=== PATIENT | male | born 2000 | race African-American/Black ===

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

== ENCOUNTER 2018-04-02 19:52 | Inpatient (IN) | payer OTHER, MEDICAID ==
[2018-04-02] MEDS ORDERED: NS 0.9% 1000 ML** 2,000 ML IV ONE (20:13)
[2018-04-02] MEDS ORDERED: Morphine VIAL* 4 MG/ML VIAL (1 ml vial) IV ONE ×2 (20:14→23:13)
[2018-04-02] MEDS ORDERED: Ondansetron INJ* 2 MG/ML VIAL IV ONE (20:14)
--- NOTE | 2018-04-02 20:14 | ED ---
Abdominal Pain/Male - HPI Summary HPI Summary: A 18 y/o M presents to ED with c/o diffuse suprapubic abd pain onset this AM. Pt states he had the pain upon waking today. Associated sx: n/v. He denies appy , but did have surgery for testicular torsion. He denies testicular swelling. - History of Current Complaint Chief Complaint: EDAbdPain Stated Complaint: ABD PAIN/NAUSEA Time Seen by Provider: 04/02/18 20:11 Hx Obtained From: Patient Onset/Duration: Lasting Hours, Still Present Timing: Constant Severity Initially: Moderate Severity Currently: Severe Pain Intensity: 9 Pain Scale Used: 0-10 Numeric Location: Diffuse Character: Sharp Associated Signs And Symptoms: Positive: Nausea, Vomiting. Negative: Other - neg: testicular swelling - Allergies/Home Medications Allergies/Adverse Reactions: Allergies Allergy/AdvReac Type Severity Reaction Status Date / Time No Known Allergies Allergy Verified 04/02/18 19:59 PMH/Surg Hx/FS Hx/Imm Hx Previously Healthy: Yes Endocrine/Hematology History: Denies: Hx Diabetes Cardiovascular History: Denies: Hx Hypertension Sensory History: Denies: Hx Deafness Opthamlomology History: Denies: Hx Legally Blind Infectious Disease History: No Infectious Disease History: Denies: Traveled Outside the [place] in Last 30 Days - Family History Known Family History: Positive: Hypertension - Social History Occupation: Student Lives: Dormitory/Roommates Alcohol Use: None Alcohol Amount: denies Hx Substance Use: No Substance Use Type: Reports: None Substance Use Comment - Amount & Last Used: Adderall occassionally Hx Tobacco Use: No Smoking Status (MU): Never Smoked Tobacco Review of Systems Positive: Abdominal Pain, Vomiting, Nausea Negative: other - neg: testicular swelling All Other Systems Reviewed And Are Negative: Yes Physical Exam - Summary Physical Exam Summary: Appearance: Well-appearing, Well-nourished, lying in bed comfortably Skin: Warm, dry, no obvious rash Eyes: sclera anicteric, no conjunctival pallor ENT: mucous membranes moist, pharynx appears normal Neck: Supple, nontender Respiratory: Clear to auscultation, no signs of respiratory distress Cardiovascular: Normal S1, S2. No murmurs. Normal distal pulses in tibial and radial bilaterally. Abdomen: Soft, normal active bowel sounds present. RLQ tenderness with some guarding. No rebound. Musculoskeletal: Normal, Strength/ROM Intact Neurological: A&Ox3, awake and alert, mentation is normal, speech is fluent and appropriate Psychiatric: affect is normal, does not appear anxious or depressed Testicular: No edema, enlargement or tenderness. Triage Information Reviewed: Yes Vital Signs On Initial Exam: Initial Vitals Temp Pulse Resp BP Pulse Ox 99.3 F 122 20 173/110 97 04/02/18 19:58 04/02/18 19:58 04/02/18 19:58 04/02/18 19:58 04/02/18 19:58 Vital Signs Reviewed: Yes Diagnostics - Vital Signs Vital Signs Temp Pulse Resp BP Pulse Ox 04/02/18 19:58 99.3 F 122 20 173/110 97 - Laboratory Result Diagrams: 04/02/18 20:37 04/02/18 20:37 Lab Statement: Any lab studies that have been ordered have been reviewed, and results considered in the medical decision making process. - CT A/P CT CT Interpretation Completed By: Radiologist Summary of CT Findings: IMPRESSION: 1. Mildly dilated thickwalled appendix concerning for early appendicitis. No. perforation or abscess. 2. Trace free fluid in pelvis. ED provider has reviewed this report. Re-Evaluation - Re-Evaluation 1 Re-Evaluation Time: 21:14 Change: Improved Comment: Pt feeling improved with medication. ABD exam shows RLQ tenderness with some guarding, no rebound. Testicular exam shows no edema, tenderness or enlargement. 2 Re-Evaluation Time: 01:22 Change: Improved Comment: Discussing CT results and surgery consult with pt, and plans to admit and go to OR. Abdominal Pain Fem Course/Dx - Course Course Of Treatment: Pt is a 18 y/o M presenting with diffuse suprapubic abd pain onset this AM. Pt states he had the pain upon waking today. Associated sx: n/v. He denies appy, but did have surgery for testicular torsion. He denies testicular swelling. Labs are without significant abnormalities. A/P CT reveals "1. Mildly dilated thickwalled appendix concerning for early appendicitis. No perforation or abscess. 2. Trace free fluid in pelvis.". Consulted with Dr. Harmon, surgery, who will admit patient and prep for OR. - Diagnoses Provider Diagnoses: Acute appendicitis - Provider Notifications Discussed Care Of Patient With: Dc Harmon - surgery Time Discussed With Above Provider: 01:21 Instructed by Provider To: Admit As Inpatient Discharge - Sign-Out/Discharge Documenting (check all that apply): Patient Departure - ADMIT, OR Patient Received Moderate/Deep Sedation with Procedure: No - Discharge Plan Condition: Stable Disposition: ADMITTED TO [facility] - Billing Disposition and Condition Condition: STABLE Disposition: Admitted to [facility] - Attestation Statements Document Initiated by Adiae: Yes Documenting Scribe: Lilian Reyes Provider For Whom Lavell is Documenting (Include Credential): Dr. Mark Montoya MD Scribe Attestation: Lilian Smith, scribed for Dr. Mark Montoya MD on 04/03/18 at 0526. Scribe Documentation Reviewed: Yes Provider Attestation: The documentation as recorded by the Lilian mackey accurately reflects the service I personally performed and the decisions made by me, Dr. Mark Montoya MD Status of Scribe Document: Viewed
[2018-04-02] MEDS ORDERED: Morphine VIAL* 10 MG/ML 1 ML VIAL ONE (20:19)
[2018-04-02 20:43] LABS: ABS Basophils 0 10^3/ul (0-0.2); ABS Eosinophils 0 10^3/ul (0-0.6); ABS Lymphocytes 0.3 10^3/ul (1.0-4.8); ABS Monocytes 0.5 10^3/ul (0-0.8); ABS Neutrophils 13.3 10^3/ul (1.5-7.7); ABS Nucleated RBC 0 10^3/ul; Eosinophil % 0.1 %; Hematocrit 46 % (42-52); Hemoglobin 15.8 g/dl (14.0-18.0); Lymphocyte % 1.9 %; Mean Corpuscular HGB Conc 34 g/dl (31-36); Mean Corpuscular Hemoglobin 29 pg (27-31); Mean Corpuscular Volume 84 fL (80-94); Mean Platelet Volume 8.9 fL (7.4-10.4); Nucleated Red Blood Cells % 0.2; Platelet Count 230 10^3/ul (150-450); Red Blood Count 5.52 10^6/ul (4.00-5.40); Red Cell Distribution Width 13 % (10.5-15)
[2018-04-02 21:02] LABS: Albumin 4.9 g/dL (3.2-5.2); Albumin/Globulin Ratio 1.9 (1-3); BUN/Creatinine Ratio 16.8 (8-20); Calcium 9.5 mg/dL (8.6-10.3); EGFR African American 100.1 (>60); EGFR Non-African American 82.7 (>60); Globulin 2.6 g/dL (2-4); Potassium 4.3 mmol/L (3.5-5.0); Total Protein 7.5 g/dL (6.4-8.9)
[2018-04-02] MEDS ORDERED: Iohexol 300* (CONTRAST) 10 ML SDV IV ONE (21:24)
[2018-04-03] MEDS ORDERED: Piperacillin/Tazobac ADVAN(*) 3.375 GM in NS 0.9% 100 ML* 100 ML IVPB ONE (01:19)
[2018-04-03] MEDS ORDERED: NS 0.9% 1000 ML** 2,000 ML IV ONE (01:20)
[2018-04-03] MEDS ORDERED: NS 0.9% 100 ML* 100 ML ONE (01:27)
[2018-04-03] MEDS ORDERED: Morphine INJ* 2 MG/ML 1 ML SYRINGE (TWO MG - NEW SYRINGE VERSION) IV PRN (01:43)
[2018-04-03] MEDS ORDERED: Metoclopramide IV* 5 MG/ML 2 ML VIAL IV PRN (01:44)
[2018-04-03] MEDS ORDERED: NS 0.9% 1000 ML** 1,000 ML IV SCH (01:45)
[2018-04-03] MEDS ORDERED: Acetaminophen TAB* 325 MG PO ONE (02:14)
[2018-04-03 03:29] LABS: Urine Appearance Clear; Urine Bilirubin Negative (Negative); Urine Blood Negative (Negative); Urine Color Yellow; Urine Glucose Negative (Negative); Urine Ketones 1+ (Negative); Urine Nitrite Negative (Negative); Urine Protein Negative (Negative); Urine Specific Gravity 1.036 (1.010-1.030); Urine Urobilinogen Negative (Negative)
[2018-04-03] MEDS ORDERED: ZOSYN 3.375 GM x ONE DOSE over 30 miuntes IVPB ×2 (07:30)
--- NOTE | 2018-04-03 09:06 | HP ---
H&P (Free Text) History and Physical: I saw and evaluated the patient. H and P dictated. 18 y.o male with HTN and acute appendicitis. Plan: laparoscopic appendectomy; r/b/a idscussed and pt wishes to proceed.
[2018-04-03] MEDS ORDERED: Buffered Lidocaine 1% SYRIN* 1 ML/SYRINGE INTRADERM ONE (09:51)
[2018-04-03] MEDS ORDERED: Ondansetron INJ* 2 MG/ML VIAL IV PRN (09:53)
[2018-04-03] MEDS ORDERED: diPHENhydraMINE IV* 50 MG/ML 1 ml VIAL (BENADRYL) IV PRN (09:53)
[2018-04-03] MEDS ORDERED: HYDROcodone/ACETAMIN 5-325 MG* 1 TAB PO PRN (09:53)
[2018-04-03] MEDS ORDERED: DiMENhydriNATE IV* 50 MG/ML VIAL IV PUSH PRN (09:53)
[2018-04-03] MEDS ORDERED: Acetaminophen TAB* 325 MG PO PRN (09:53)
[2018-04-03] MEDS ORDERED: fentaNYL* 50 MCG/ML 2 ML VIAL (100 MCG VIAL) IV PRN (09:53)
[2018-04-03] MEDS ORDERED: Naloxone* 0.4 MG/ML 1 ML VIAL IV PRN (09:53)
[2018-04-03] MEDS ORDERED: Lactated Ringers 1000 ML Bag* 1,000 ML IV SCH (10:00)
--- NOTE | 2018-04-03 10:00 | HP ---
CC: Anastacio Will[facility] at [facility]. HISTORY AND PHYSICAL: DATE OF ADMISSION: 04/03/18 HISTORY OF PRESENT ILLNESS: Mr. 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 Patient's workup in the ER including labs and CAT scan were consistent with acute appendicitis and I was contacted. Patient was admitted to my service in the overnight, I see him right now. Patient describes acute onset of pain about 5 a.m. yesterday, woke up, and had intermittent nausea an d vomiting afterwards as well as loose bowel movements, decreased appetite. Denied any fevers or chi lls, but he has had fever in the overnight. Patient denies any previous similar symptoms. He was co ncerned that the pain at first was similar to testicular torsion that he suffered years ago. Patient underwent a successful detorsion with suturing without orchiectomy. Patient currently has no pain in the scrotum. Pain is relieved with rest, worse with movement, it is improved with narcotics. PAST MEDICAL HISTORY: Hypertension. PAST SURGICAL HISTORY: As above. MEDICATIONS: 1. Amlodipine. 2. Losartan. Patient follows [facility] with regards to his hypertension, has undergone multiple labs through there. ALLERGIES: No known drug allergies. FAMILY HISTORY: Noncontributory. No family history of ulcerative colitis or Crohn's disease. SOCIAL HISTORY: Nonsmoker, nondrinker. 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 He is not an athlete. He is studying [employer]. REVIEW OF SYSTEMS: No headaches, no shortness of breath. No fevers except now objectively here in [facility]. No GERD, no irritable bowel symptoms. Loose bowel movements and vomiting as described. No bleeding or clotting disorders. Hypertension as described. No metabolic disorders. No psychiat kris illnesses. No significant weight loss or weight gain. PHYSICAL EXAMINATION VITAL SIGNS: Temperature 101.8, heart rate 109, blood pressure 150/67. He is alert and oriented x3, in no apparent distress. HEAD, EYES, EARS, NOSE, AND THROAT: Normocephalic, atraumatic. Sclerae are anicteric. Mucous membr anes are dry. NECK: No lymphadenopathy. LUNGS: Clear. ABDOMEN: Soft, nondistended. Tender in the right lower quadrant without rebound. Positive voluntary guarding. No CVA tenderness. RECTAL EXAM: Not performed. EXTREMITIES: Within normal limits with no pitting edema. Negative Rovsing or psoas sign. DIAGNOSTIC STUDIES/LAB DATA: Labs reviewed show white count elevated 14 with a left shift. No anem ia. Metabolic panel reviewed creatinine 1.13, which is upper limit of normal with an estimated GFR of 100. Lactic acid normal. Urinalysis with positive ketones. Patient underwent a CAT scan of the abdomen and pelvis. These images as well as report were reviewed . Positive fat, mildly dilated appendix with thick wall. IMPRESSION: Acute appendicitis, sepsis criteria with fever and elevated heart rate with white count elevated with left shift. Recommendations for antibiotics and has been started. Patient has already received a second dose of Zosyn. I have recommended laparoscopic appendectomy. I went over the deta ils of the procedure outlying the laparoscopic approach. Patient wishes to proceed. I spoke with po ssible complications, which include not limited bleeding, infection, bowel injury, abscess formation, need for open procedure, need for additional procedures. We also talked about the possible alternati ves of watchful waiting, and antibiotics alone. This was not recommended. Patient did not choose to go in this fashion. He maintained n.p.o. status, he is on IV fluids and we will take him emergently to the operating room for laparoscopic appendectomy. [id number]/[facility] #: [id number]
[2018-04-03] MEDS ORDERED: fentaNYL* 50 MCG/ML 2 ML VIAL (100 MCG VIAL) ONE (10:18)
[2018-04-03] MEDS ORDERED: Midazolam* 1 MG/ML 2 ML VIAL (2 MG) ONE (10:18)
[2018-04-03] MEDS ORDERED: Bupivacaine 0.5% W/EPI SDV* 30 ML VIAL ONE (11:01)
[2018-04-03] MEDS ORDERED: Famotidine IV* 10 MG/ML 2 ML (20 mg) ONE (11:21)
[2018-04-03] MEDS ORDERED: Cisatracurium* 2 MG/ML MDV 5 ML ONE (11:26)
[2018-04-03] MEDS ORDERED: Ketorolac INJ* 30 MG/ML 1 ML VIAL ONE (11:35)
[2018-04-03] MEDS ORDERED: Succinylcholine* 20 MG/ML 10 ML VIAL ONE (11:35)
[2018-04-03] MEDS ORDERED: Ondansetron INJ* 2 MG/ML VIAL ONE (11:35)
[2018-04-03] MEDS ORDERED: Dexamethasone IV* 4 MG/ML 1 ML (4 MG) ONE (11:35)
[2018-04-03] MEDS ORDERED: Propofol* 10 MG/ML 20 ML BTL ONE (11:35)
[2018-04-03] MEDS ORDERED: Metoprolol Tartrate IV* 1 MG/ML 5 ML VIAL ONE (11:57)
--- NOTE | 2018-04-03 12:18 | BRIEFOPN ---
Brief Operative Note - Surgery Procedures: Pre-OP Diagnoses: acute appendicitis Post-op Diagnosis: same Procedure: Laparoscopic appendectomy Surgeon: Faustino Asst: none Anethesia: PRABHUA EBL: minimal IVF: crystalloid Specimen: appendix Drains: none
[2018-04-03] MEDS ORDERED: Neostigmine Methylsulfate* 1 MG/ML 10 ML VIAL (1 mg/ml) ONE (12:28)
[2018-04-03] MEDS ORDERED: HYDROcodone/ACETAMIN 5-325 MG* 1 TAB ONE (13:31)
[2018-04-03 13:52] VITALS: BP 138/77
--- NOTE | 2018-04-03 22:33 | OP ---
CC: Anastacio Willard MD; [facility] * DATE OF OPERATION: 04/03/18 - ROOM #332 DATE OF : 98 SURGEON: Dc Harmon MD. SENIOR SYSTEMS ADMINISTRATOR: None. ANESTHESIOLOGIST: Dr. Camilo. ANESTHESIA: General. PRE-OP DIAGNOSIS: Acute appendicitis. POST-OP DIAGNOSIS: Acute appendicitis. OPERATIVE PROCEDURE: Laparoscopic appendectomy. ESTIMATED BLOOD LOSS: Minimal blood loss. FLUIDS: Minimal crystalloid fluid given. SPECIMEN: Appendix. DESCRIPTION OF PROCEDURE: The patient was brought to the operating room, placed on the operating table in supine position. The patient had already received antibiotics. General anesthesia was induced. The patient's abdomen was clipped of hair and prepped and draped in a standard surgical fashion and a time-out was performed. An infraumbilical incision was made. The skin was elevated and a Veress needle inserted into the abdominal cavity, which was then allowed to insufflate to pressure of 15 mmHg. The patient tolerated the insufflation well. Veress needle was moved and a 5 mm OptiView trocar was inserted appropriately into the abdomen. Laparoscope was inserted through this. There was no evidence of injury from the trocar insertion. There was no evidence of bleeding. Additional trocars were placed in the following positions: A 5 mm in a suprapubic area and a 5 mm in the left lower quadrant. Review of the abdomen showed some scant free fluid that was nonpurulent. The appendix was identified and was peritonealized at the lateral aspect of the cecum. It hooked up from the base. It was easily identifiable to the tip. It was not identifiable until we rotated the cecum more medially. Dissection was carried out taking the lateral attachments with LigaSure. We then came along the turn of the appendix overlying the cecum and we were able to at this point elongate the inflamed- appearing appendix. The LigaSure was used to take the mesentery of the appendix in a stepwise state and then we used a 0-Vicryl Endoloop at the base of the appendix to healthy tissue. Another Endoloop was placed and we cut in between the site. The mucosa later was cauterized. The appendix was placed in endoscopic retrieval bag. Reviewed the abdomen and there was no evidence of injury. There was no soilage and we removed the appendix through the 5 mm umbilical port site in its endoscopic retrieval bag. The abdomen was allowed to collapse. Trocar removed under direct vision and all 3 skin incisions were reapproximated with 4-0 Monocryl subcuticular sutures followed by Steri-Strips and sterile dressing. The patient tolerated the procedure well and was woken in the OR and transferred to the PACU. [id number]/[facility] #: [id number] LEW
== END 2018-04-03 14:07 | disposition home or self-care (01) | DRG 343 ==
LOC: ED 19:52 → SSU 04-03 01:40
PROVIDERS: ADMIT Surgery; ATTEND Surgery
PROC: 0DTJ4ZZ Resection of Appendix, Percutaneous Endoscopic Approach (ICD-10-PCS; principal; 2018-04-03 13:00)
DX: K35.80 Unspecified acute appendicitis (principal); I10 Essential (primary) hypertension; Z79.899 Other long term (current) drug therapy
CPT/HCPCS: 36415; 74177; 80053; 81003; 83605; 83690; 85025; 88304; 99284; A9270-GY; J0330; J1100; J1885; J2250; J2270; J2405; J2543; J2704; J2710; J2765; J3010; J3490; Q9967

== ENCOUNTER 2018-04-18 13:04 | Observation (INO) | payer OTHER, MEDICAID ==
--- NOTE | 2018-04-18 14:02 | ED ---
Abdominal Pain/Male - HPI Summary HPI Summary: Pt is a 18 y/o male who presents to the ED c/o abdominal pain. He had an appendectomy 2 weeks ago without any complications, and was on post-operative pain medications. Pt has been having intermittent diffuse abdominal pain for the past 6 days, rated 8/10 in severity at its worst. The pain is made worse with movement. He also notes mild diarrhea. Pt denies any N/V, back pain, testicular pain, fever, or hematochezia. - History of Current Complaint Chief Complaint: EDAbdPain Stated Complaint: ABD PAIN Time Seen by Provider: 04/18/18 13:52 Hx Obtained From: Patient Onset/Duration: Gradual Onset, Lasting Days - 6, Still Present Timing: Intermittent Severity Currently: Severe Pain Intensity: 8 Pain Scale Used: 0-10 Numeric Location: Diffuse Radiates: No Aggravating Factor(s): Movement Alleviating Factor(s): Nothing Associated Signs And Symptoms: Positive: Diarrhea. Negative: Fever, Back Pain, Blood in Stool, Nausea, Vomiting - Allergies/Home Medications Allergies/Adverse Reactions: Allergies Allergy/AdvReac Type Severity Reaction Status Date / Time No Known Allergies Allergy Verified 04/18/18 14:05 Home Medications: Home Medications Valsartan TAB* [Diovan TAB*] 160 mg PO DAILY 04/18/18 [History Confirmed ] amLODIPine TAB* [Norvasc 5 mg TAB*] 7.5 mg PO DAILY 04/18/18 [History Confirmed 04/18/18] PMH/Surg Hx/FS Hx/Imm Hx Endocrine/Hematology History: Denies: Hx Diabetes Cardiovascular History: Denies: Hx Hypertension Sensory History: Reports: Hx Contacts or Glasses Denies: Hx Legally Blind, Hx Deafness, Hx Hearing Aid Opthamlomology History: Reports: Hx Contacts or Glasses Denies: Hx Legally Blind - Immunization History Date of Tetanus Vaccine: UTD Infectious Disease History: No Infectious Disease History: Denies: Traveled Outside the [place] in Last 30 Days - Family History Known Family History: Positive: Hypertension - Social History Alcohol Use: None Alcohol Amount: denies Hx Substance Use: No Substance Use Type: Reports: None Substance Use Comment - Amount & Last Used: Adderall occassionally Hx Tobacco Use: No Smoking Status (MU): Never Smoked Tobacco Review of Systems Negative: Fever Positive: Abdominal Pain, Diarrhea. Negative: Vomiting, Nausea, Other - hematochezia Negative: other - testicular pain Negative: Myalgia - back pain All Other Systems Reviewed And Are Negative: Yes Physical Exam - Summary Physical Exam Summary: Appearance: Well appearing, no pain distress Skin: warm, dry, reflects adequate perfusion Head/face: normal Eyes: EOMI, KATIE ENT: mucous membranes moist Neck: supple, non-tender Respiratory: CTA, breath sounds present Cardiovascular: RRR, pulses symmetrical Abdomen: soft, mild guarding, mild diffuse tenderness worse in the RLQ Bowel Sounds: present Musculoskeletal: normal, strength/ROM intact Neuro: normal, sensory motor intact, A&Ox3 Triage Information Reviewed: Yes Vital Signs On Initial Exam: Initial Vitals Temp Pulse Resp BP Pulse Ox 98.6 F 71 14 153/102 99 04/18/18 13:05 04/18/18 13:05 04/18/18 13:05 04/18/18 13:05 04/18/18 13:05 Vital Signs Reviewed: Yes Diagnostics - Vital Signs Vital Signs Temp Pulse Resp BP Pulse Ox 04/18/18 13:05 98.6 F 71 14 153/102 99 - Laboratory Result Diagrams: 04/18/18 14:15 04/18/18 14:15 Lab Statement: Any lab studies that have been ordered have been reviewed, and results considered in the medical decision making process. - Radiology Abdomen XR Radiology Interpretation Completed By: Radiologist Summary of Radiographic Findings: NONSPECIFIC BOWEL GAS PATTERN. ED physician reviewed radiology report. - Ultrasound No standard instances Ultrasound Interpretation Completed By: Radiologist Summary of Ultrasound Findings: Abdomen US: The constellation of findings given the clinical context favors a small loculated abscess collection at the RIGHT lower quadrant with estimated volume of approximately 15-20 mL. Small volume of nonloculated RIGHT lower quadrant free fluid. ED physician reviewed radiology report. Abdominal Pain Fem Course/Dx - Course Course Of Treatment: Nurse's notes removed. Patient with pain following appendectomy. Ultrasound reveals a fluid collection in that area that could be abscess versus seroma. Discussed with surgery. Wbc, CRP are elevated. They will discuss with interventional radiology to see best way to sample/strain this. Dose of IV Zosyn given here. Admit for further. - Diagnoses Differential Diagnosis/HQI/PQRI: Other - Postsurgical constipation, abscess, bowel obstruction, ileus Provider Diagnoses: Abdominal abscess - Provider Notifications Discussed Care Of Patient With: Mark Crain Time Discussed With Above Provider: 14:57 Instructed by Provider To: Admit As Inpatient - Give the pt Zosyn. Discharge - Sign-Out/Discharge Documenting (check all that apply): Patient Departure - Admit Patient Received Moderate/Deep Sedation with Procedure: No - Discharge Plan Condition: Fair Disposition: ADMITTED TO [facility] - Billing Disposition and Condition Condition: FAIR Disposition: Admitted to [facility] - Attestation Statements Document Initiated by Scribe: Yes Documenting Scribe: Debby Rodrigues Provider For Whom Scribe is Documenting (Include Credential): Leo Lozada MD Scribe Attestation: Debby Smith, scribed for Leo Lozada MD on 04/18/18 at 1618. Scribe Documentation Reviewed: Yes Provider Attestation: The documentation as recorded by the Debby mackey accurately reflects the service I personally performed and the decisions made by , Leo Lozada MD Status of Scribe Document: Viewed
[2018-04-18] MEDS ORDERED: Ketorolac INJ* 30 MG/ML 1 ML VIAL IV PUSH ONE (14:04)
[2018-04-18 14:25] LABS: ABS Basophils 0.1 10^3/ul (0-0.2); ABS Eosinophils 0.1 10^3/ul (0-0.6); ABS Lymphocytes 2.1 10^3/ul (1.0-4.8); ABS Monocytes 1.4 10^3/ul (0-0.8); ABS Neutrophils 7.3 10^3/ul (1.5-7.7); ABS Nucleated RBC 0 10^3/ul; Eosinophil % 1.3 %; Hematocrit 43 % (42-52); Hemoglobin 14.7 g/dl (14.0-18.0); Lymphocyte % 19.4 %; Mean Corpuscular HGB Conc 34 g/dl (31-36); Mean Corpuscular Hemoglobin 28 pg (27-31); Mean Corpuscular Volume 83 fL (80-94); Mean Platelet Volume 8.7 fL (7.4-10.4); Nucleated Red Blood Cells % 0.3; Platelet Count 303 10^3/ul (150-450); Red Blood Count 5.23 10^6/ul (4.00-5.40); Red Cell Distribution Width 13 % (10.5-15)
[2018-04-18 14:41] LABS: BUN/Creatinine Ratio 12.5 (8-20); C Reactive Protein 45.42 mg/L (<8.01); EGFR African American 110.2 (>60); Potassium 3.7 mmol/L (3.5-5.0)
[2018-04-18] MEDS ORDERED: Piperacillin/Tazobac ADVAN(*) 3.375 GM in NS 0.9% 100 ML* 100 ML IVPB ONE ×2 (15:02→15:06)
[2018-04-18] MEDS ORDERED: Acetaminophen TAB* 325 MG PO PRN (15:06)
[2018-04-18] MEDS ORDERED: Ondansetron INJ* 2 MG/ML VIAL IV PRN (15:06)
[2018-04-18] MEDS ORDERED: Morphine INJ* 2 MG/ML 1 ML SYRINGE (TWO MG - NEW SYRINGE VERSION) IV PRN (15:07)
[2018-04-18] MEDS ORDERED: Zosyn per Pharmacy* NOTE FOLLOW UP SCH (16:00)
[2018-04-18] MEDS ORDERED: Lactated Ringers 1000 ML Bag* 1,000 ML IV SCH (16:00)
[2018-04-18] MEDS ORDERED: Iohexol 300* (CONTRAST) 10 ML SDV IV ONE (16:38)
--- NOTE | 2018-04-18 19:04 | HP ---
HISTORY AND PHYSICAL: DATE OF ADMISSION: 04/18/18. CHIEF COMPLAINT: Right lower quadrant abdominal pain. HISTORY OF PRESENT ILLNESS: Mr. 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 He has not had any fevers, shakes, or chills or nausea, but he did feel some anorexia with poor oral intake in the last several days. He had some looser bowel movements later last week, but has not had a bowel movement in several days. Of note, he underwent a laparoscopic appendectomy with Dr. Harmon on 04/03/18. Pathology did show acute early appendicitis and this was done with a laparoscope. He did well and was discharged home on postoperative day #1 without antibiotics. When seen in the emergency room today, he was noted to be afebrile with stable vital signs. Laboratory workup included a white blood cell count of 11,000 without shift. He was noted to have a C-reactive protein of 45. He was noted to have some mild tenderness in the right lower quadrant with some voluntary muscle rigidity. He underwent an ultrasound of his abdomen. I did review these studies as well as review them with radiologist, Dr. Black today. This shows a small volume of right lower quadrant free fluid, but in addition there is a thick-walled 3.8 x 3.2 x 3.7 cm complex fluid and debris collection consistent possibly with abscess versus phlegmon. Surgical consultation was obtained. PAST MEDICAL HISTORY: Hypertension. PAST SURGICAL HISTORY: Laparoscopic appendectomy. MEDICATIONS: Include amlodipine and losartan. ALLERGIES: He has no known drug allergies. SOCIAL HISTORY: He is a nonsmoker and nondrinker. 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 He is from the [facility] and his parents lived there. REVIEW OF SYSTEMS: Otherwise unremarkable. PHYSICAL EXAMINATION GENERAL: He is a slender, well-developed, well-nourished male, appears to be in no apparent distress. VITAL SIGNS: Temperature 98.8, pulse 63, blood pressure 148/78. LUNGS: Clear to auscultation with normal respiratory effort. HEART: Regular rate and rhythm without murmurs, rubs, or gallops. ABDOMEN: Soft and nondistended. He has normoactive bowel sounds throughout. They were slightly hyperactive. He has well-healed laparoscopic incisions without hernia or redness. He has some mild tenderness in the right lower quadrant with some voluntary guarding. There is no peritoneal irritation. There is no generalized peritonitis. EXTREMITIES: Show no cyanosis or edema. IMPRESSION: Status post laparoscopic appendectomy almost 2 weeks ago with a return to the emergency room, several days of intermittent crampy abdominal discomfort and anorexia. He is noted to have a mild white blood cell count elevation and elevated CRP. Ultrasound as per above. I reviewed the ultrasound with Dr. Black here from [facility]. It is difficult to determine with the ultrasound whether the phlegmon is possibly an abscess and there also appears to be some free fluid, which is hard to distinguish on the ultrasound. PLAN: 1. The patient will be admitted to the surgical service in the short-stay unit. 2. He will be started on IV Zosyn. 3. He will be kept n.p.o. for now. 4. IV fluids will be started. 5. After discussion with Dr. Black, we will proceed with a CT scan of the pelvis with oral contrast, allowing the contrast to pass down through the terminal ileum and right colon for optimal visualization and elucidation of a possible abscess versus phlegmon. This may be amenable to percutaneous drainage. All of the above was discussed with the patient and his questions were answered. I also offered to call his parents, but he states that they are aware of his hospitalization and he did not request me to call them at this point. [id number]/[facility] #: [id number] MTDD
[2018-04-18] MEDS ORDERED: ZOSYN 3.375 GM Q8H per EXTENDED INFUSION IVPB SCH ×2 (19:30)
[2018-04-18] MEDS: Piperacillin/Tazobac ADVAN(*) 3.375 GM in NS 0.9% 100 ML* 100 ML IVPB SCH (21:39)
[2018-04-18] MEDS: oxyCODONE/Acetamin 5/325 MG* TAB PO PRN (22:52)
[2018-04-19] MEDS: Piperacillin/Tazobac ADVAN(*) 3.375 GM in NS 0.9% 100 ML* 100 ML IVPB SCH ×3 (05:18→21:03)
[2018-04-19] MEDS: oxyCODONE/Acetamin 5/325 MG* TAB PO PRN ×3 (05:21→18:22)
--- NOTE | 2018-04-19 10:10 | PN ---
Progress Note - Progress Note Date of Service: 04/19/18 Note: S: Feels about the same. Rates pain at 7/10, but has only req'd Percocet x 2. No N/V. Would like to eat (conor clears well). No flatus, but is passing liquid stool. O: Vital Signs - 8 hr 04/19/18 04/19/18 04/19/18 03:56 05:18 05:21 Temperature 98.2 F Pulse Rate 55 Respiratory 16 17 17 Rate Blood Pressure 123/61 (mmHg) O2 Sat by Pulse 99 Oximetry 04/19/18 04/19/18 07:21 07:27 Temperature 98.1 F Pulse Rate 53 Respiratory 16 16 Rate Blood Pressure 122/63 (mmHg) O2 Sat by Pulse 99 Oximetry Intake and Output Last 24 Hours 04/17/18 04/18/18 04/19/18 04/20/18 06:59 06:59 06:59 06:59 Intake Total 1635 105 Output Total 700 Balance 935 105 Weight 152 lb Intake: IV Fluids 935 LR 835 IVPB 100 105 ABX - ZOSYN 100 105 Oral 600 Output: Urine 700 Gen: WN; appears comfortable Heart: reg Lungs: clear Abd: flat, nondistended; +BS; soft; moderate tenderness w/ vol guarding RLQ, just over anterior iliac spine; remainder w/o sig tenderness No labs this a.m. A: intra-abd/pelvic abscess; small P: discussed w/ Drs. Harmon and Breann; cont IV abx (Zosyn); adv diet; labs tomorrow a.m. Pt understands the potential need for perc drainage.
[2018-04-20] MEDS: oxyCODONE/Acetamin 5/325 MG* TAB PO PRN ×2 (01:31→05:46)
[2018-04-20 04:55] LABS: ABS Basophils 0 10^3/ul (0-0.2); ABS Eosinophils 0.2 10^3/ul (0-0.6); ABS Lymphocytes 1.8 10^3/ul (1.0-4.8); ABS Monocytes 0.8 10^3/ul (0-0.8); ABS Neutrophils 4.1 10^3/ul (1.5-7.7); ABS Nucleated RBC 0 10^3/ul; Hematocrit 40 % (42-52); Hemoglobin 13.8 g/dl (14.0-18.0); Mean Corpuscular HGB Conc 35 g/dl (31-36); Mean Corpuscular Hemoglobin 28 pg (27-31); Mean Corpuscular Volume 81 fL (80-94); Mean Platelet Volume 8.5 fL (7.4-10.4); Nucleated Red Blood Cells % 0.1; Platelet Count 264 10^3/ul (150-450); Red Blood Count 4.91 10^6/ul (4.00-5.40); Red Cell Distribution Width 13 % (10.5-15); White Blood Count 6.9 10^3/ul (3.5-10.8)
[2018-04-20] MEDS: Piperacillin/Tazobac ADVAN(*) 3.375 GM in NS 0.9% 100 ML* 100 ML IVPB SCH (05:46)
--- NOTE | 2018-04-20 08:57 | PN ---
Progress Note - Progress Note Date of Service: 04/20/18 Note: S: Day #2 Zosyn. Feels about the same, or pain possibly a little worse. Using only Percocet. No N/V. Loose, watery stools. O: Vital Signs - 8 hr 04/20/18 04/20/18 04/20/18 01:31 03:31 03:59 Temperature 97.8 F Pulse Rate 51 Respiratory 20 16 16 Rate Blood Pressure 134/68 (mmHg) O2 Sat by Pulse 100 Oximetry 04/20/18 04/20/18 04/20/18 05:46 07:41 08:37 Temperature 98.2 F Pulse Rate 51 Respiratory 18 16 16 Rate Blood Pressure 124/63 (mmHg) O2 Sat by Pulse 98 Oximetry Intake and Output Last 24 Hours 04/18/18 04/19/18 04/20/18 04/21/18 06:59 06:59 06:59 06:59 Intake Total 1635 1295 Output Total 700 0 Balance 935 1295 Weight 152 lb Intake: IV Fluids 935 LR 835 IVPB 100 105 ABX - ZOSYN 100 105 Oral 600 1190 Output: Urine 700 0 Other: Estimated Void Large # Bowel Movements 0 Estimated Stool Amount Medium # Voids 1 Gen: appears comfortable, NAD Heart: reg Lungs: clear ant Abd: nondistended; +BS; firmness/tenderness RLQ; remainder soft,nontender Labs: Laboratory Tests 04/18/18 04/18/18 04/20/18 14:15 14:15 04:41 WBC 11.0 H 6.9 C-Reactive Protein 45.42 H 04/20/18 04:41 WBC C-Reactive Protein 31.61 H A: intra-abd/pelvic abscess, post appendectomy; no sig change clinically, though lab parameters are favorable P: await re-exam by Dr. Harmon this a.m. and discuss plan
--- NOTE | 2018-04-20 10:51 | DS ---
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 He went to the operating room on 04/03/18 and underwent a laparoscopic appendectomy. Please see report for details. The patient was discharged from the PACU on no antibiotics for what appeared to be an appendicitis. The patient did well in the week postop and then starting Wednesday last week started having crampy abdominal pain, mostly in the right lower quadrant, decreased appetite. He denied any fever or chills. He was having loose bowel movements. When pain did not improve, he presented to the emergency room where a workup was consistent with fluid collection in the right lower quadrant cecal area. The patient was admitted for postoperative abscess. These images were reviewed. This case was discussed with the admitting doctor. I was aware that the patient was admitted and started on antibiotics and saw him today on hospital day 3. The patient has had no fever, no tachycardia during his hospitalization. He presented with a white count of 11 and now it has normalized to 7 without left shift. CRP of 45, is improving to 31 during his admission. The patient's appetite is improving and he did have 3 loose bowel movements yesterday. He is passing minimal flatus. The intermittent crampy pain still occurs, but it is less frequent and it is tolerable. The patient has been treated with Zosyn. He has no allergies. PHYSICAL EXAMINATION ON DAY OF DISCHARGE: Vital Signs: The patient is afebrile. Vital signs are stable. General: Alert and oriented x3, in no apparent distress. Lungs: Clear to auscultation bilaterally. Abdomen: Soft, nondistended. Tender in his right lower quadrant on deep palpation. Rectal: His rectal exam not performed. Extremities: Within normal limits. LABORATORY DATA: Reviewed. IMPRESSION: Abscess, status post laparoscopic appendectomy. The patient is hemodynamically stable. I do not feel this would benefit from drainage at this time, as the patient is improving and this does represent small collection. My recommendation is discharge home, for 7 days of antibiotics and close followup tomorrow. We talked about the possibility of keeping in him on 24 more hours in the hospital, but the patient does want to make some of his classes and I do understand he has missed some classes due to his issues. So, for this reason, an early appointment will be made in my office tomorrow. The patient will be discharged today. Course of antibiotics was given and sent to [facility] 875 twice a day for 7 days. The patient's appointment was made for tomorrow at my office at 10:30. This was all discussed with the patient. There is no wound care. He will be going home and followup tomorrow. [id number]/[facility] #: [id number] LEW
[2018-04-20 11:51] VITALS: BP 125/69
== END 2018-04-20 13:09 | disposition home or self-care (01) ==
LOC: ED 13:04 → SSU 15:04
PROVIDERS: ADMIT Surgery; ATTEND Surgery
DX: T81.43XA Infection following a procedure, organ and space surgical site, initial encounter (principal); K65.1 Peritoneal abscess; R10.9 Unspecified abdominal pain; Z90.89 Acquired absence of other organs; R19.7 Diarrhea, unspecified
CPT/HCPCS: 36415; 72193; 74018; 76705; 80048; 85025; 86140; 96365; 96366; 96375; 99284; A9270-GY; G0378; J1885; J2405; J2543; Q9967

== ENCOUNTER 2019-06-24 09:11 | Emergency (ER) | payer MEDICAID, OTHER ==
[2019-06-24] MEDS ORDERED: NS 0.9% 1000 ML** 1,000 ML IV ONE (09:18)
[2019-06-24] MEDS ORDERED: Ketorolac INJ* 30 MG/ML 1 ML VIAL IV PUSH ONE (09:18)
--- NOTE | 2019-06-24 09:25 | ED ---
Abdominal Pain/Male - HPI Summary HPI Summary: 19 y/o male presented to [facility] for mid abdomen pain rated 5/10 present for 4 days. Pt endorses abd pain, nausea, vomiting urges, decreased oral intake, and diarrhea. Vomiting urges do not produce vomit due to decreased oral intake. He denies fever, blood in stool, pain urinating, and hematuria. Pt has not had a bowel movement recently and has not eaten for 2 days. He has not had this pain before. He also notes confusion but attributes this to stress, per a conversation with his PCP. No travel or sick contacts. Pt notes a cough 2 weeks ago. Hx of HTN controlled by medication and appendectomy noted. No Hx of stomach ulcers, UC, or Crohns. FHx of HTN noted. Pt does not smoke cigarettes and used to drink alcohol but does not anymore. - History of Current Complaint Stated Complaint: ABDOMINAL PAIN PER EMS Time Seen by Provider: 06/24/19 09:17 Hx Obtained From: Patient Onset/Duration: Lasting Days, Still Present Timing: Lasting Days Severity Currently: Moderate Pain Intensity: 5 Pain Scale Used: 0-10 Numeric Location: Other - mid abdomen Aggravating Factor(s): Nothing Alleviating Factor(s): Nothing Associated Signs And Symptoms: Positive: Decreased Appetite, Nausea, Vomiting - urges with no vomit, Diarrhea. Negative: Fever, Blood in Stool, Urinary Symptoms - Allergies/Home Medications Allergies/Adverse Reactions: Allergies Allergy/AdvReac Type Severity Reaction Status Date / Time No Known Allergies Allergy Verified 04/18/18 14:05 Home Medications: Home Medications Valsartan TAB* [Diovan TAB*] 160 mg PO DAILY 04/18/18 [History Confirmed ] amLODIPine TAB* [Norvasc 5 mg TAB*] 7.5 mg PO DAILY 04/18/18 [History Confirmed 04/18/18] Amoxicillin/Clavulanate TAB* [Augmentin TAB 875*] 875 mg PO BID #14 tab [Rx] Oxycodone HCl/Acetaminophen [Percocet 5-325 mg Tablet] 1 each PO Q4H PRN #15 tablet MDD 6 04/20/18 [Rx] PMH/Surg Hx/FS Hx/Imm Hx Endocrine/Hematology History: Denies: Hx Diabetes Cardiovascular History: Reports: Hx Hypertension GI History: Reports: Hx Gastroesophageal Reflux Disease Sensory History: Reports: Hx Contacts or Glasses Denies: Hx Legally Blind, Hx Deafness, Hx Hearing Aid Opthamlomology History: Reports: Hx Contacts or Glasses Denies: Hx Legally Blind - Immunization History Date of Tetanus Vaccine: UTD - Family History Known Family History: Positive: Hypertension - Social History Alcohol Use: Rare Alcohol Amount: denies Hx Substance Use: No Substance Use Type: Reports: None Substance Use Comment - Amount & Last Used: Adderall occassionally Hx Tobacco Use: No Smoking Status (MU): Never Smoked Tobacco Review of Systems Negative: Fever Gastrointestinal: Other - negative - decreased oral intake Positive: Abdominal Pain - mid abdomen, Vomiting - urges with no vomit, Diarrhea , Nausea, Other - positive - decreased oral intake Negative: dysuria, hematuria All Other Systems Reviewed And Are Negative: Yes Physical Exam - Summary Physical Exam Summary: Constitutional: Well-developed, Well-nourished, Alert. (-) Distressed Skin: Warm, Dry HENT: Normocephalic; Atraumatic Eyes: Conjunctiva normal Neck: Musculoskeletal ROM normal neck. (-) JVD, (-) Stridor, (-) Tracheal deviation Cardio: Rhythm regular, rate normal, Heart sounds normal; Intact distal pulses; The pedal pulses are 2+ and symmetric. Radial pulses are 2+ and symmetric. (-) Murmur Pulmonary/Chest wall: Effort normal. (-) Respiratory distress, (-) Wheezes, (-) Rales Abd: Soft, (-) tenderness to palpation, (-) Distension, (-) Guarding, (-) Rebound Musculoskeletal: (-) Edema Lymph: (-) Cervical adenopathy Neuro: Alert, Oriented x3 Psych: Mood and affect Normal Triage Information Reviewed: Yes Vital Signs Reviewed: Yes Procedures - Sedation Patient Received Moderate/Deep Sedation with Procedure: No Diagnostics - Laboratory Result Diagrams: 06/24/19 09:40 06/24/19 09:40 Lab Statement: Any lab studies that have been ordered have been reviewed, and results considered in the medical decision making process. Abdominal Pain Male Course/Dx - Course Course Of Treatment: 19 y/o male presented to [facility] for mid abdomen pain rated 5 /10 present for 4 days. Pt endorses abd pain, nausea, vomiting urges, decreased oral intake, and diarrhea. Vomiting urges do not produce vomit due to decreased oral intake. He denies fever, blood in stool, pain urinating, and hematuria. Pt has not had a bowel movement recently and has not eaten for 2 days. He has not had this pain before. He also notes confusion but attributes this to stress, per a conversation with his PCP. No travel or sick contacts. Pt notes a cough 2 weeks ago. Hx of HTN controlled by medication and appendectomy noted. No Hx of stomach ulcers, UC, or Crohns. FHx of HTN noted. Exam showed was normal. Labs showed RBC 5.57, creatinine 1.18, bilirubin 1.10, and urine ketones. Pt was given 30mg Toradol. Abdominal exam rather benign. Patient tolerating by mouth liquids. No indication for imaging at this time. Patient discharged home, has PCP for follow-up. Pt was diagnosed with Abdominal pain; and discharged to home. - Diagnoses Provider Diagnoses: Abdominal pain - Critical Care Time Critical Care Statement: Critical care time is provided exclusive of any time spent performing procedures. Discharge ED - Sign-Out/Discharge Documenting (check all that apply): Patient Departure - dc - Discharge Plan Condition: Stable Disposition: HOME Patient Education Materials: Acute Abdominal Pain (ED) Referrals: Socorro López DO [Primary Care Provider] - Additional Instructions: Follow up with your primary care provider on Wednesday. If you experience new or worsening symptoms please return to the ER. - Billing Disposition and Condition Condition: STABLE Disposition: Home - Attestation Statements Document Initiated by Lavell: Yes Documenting Scribe: Jaciel Garcia Provider For Whom Lavell is Documenting (Include Credential): Gurjit Spence DO Scribe Attestation: Jaciel Smith scribed for Gurjit Spence DO on 06/24/19 at 1245. Scribe Documentation Reviewed: Yes Provider Attestation: The documentation as recorded by the Jaciel mackey accurately reflects the service I personally performed and the decisions made by , Gurjit Spence DO Status of [place] Document: Viewed
[2019-06-24 10:02] LABS: ABS Eosinophils 0.1 10^3/ul (0-0.6); ABS Lymphocytes 1.8 10^3/ul (1.0-4.8); ABS Monocytes 0.6 10^3/ul (0-0.8); ABS Neutrophils 2.7 10^3/ul (1.5-7.7); Eosinophil % 1.6 %; Hematocrit 46 % (42-52); Hemoglobin 16.3 g/dL (14.0-18.0); Lymphocyte % 34.4 %; Mean Corpuscular HGB Conc 36 g/dL (31-36); Mean Corpuscular Hemoglobin 29 pg (27-31); Mean Corpuscular Volume 82 fL (80-94); Mean Platelet Volume 9.3 fL (7.4-10.4); Nucleated Red Blood Cells % 0.3; Platelet Count 225 10^3/uL (150-450); Red Blood Count 5.57 10^6 /uL (4.18-5.48); Red Cell Distribution Width 14 % (10-15); White Blood Count 5.1 10^3/uL (3.5-10.8)
[2019-06-24 10:12] LABS: Urine Appearance Clear; Urine Bacteria Absent (Absent); Urine Bilirubin Negative (Negative); Urine Blood Negative (Negative); Urine Color Yellow; Urine Glucose Negative (Negative); Urine Ketones 1+ (Negative); Urine Nitrite Negative (Negative); Urine Protein Negative (Negative); Urine Red Blood Cell Absent (Absent); Urine Specific Gravity 1.023 (1.010-1.030); Urine Urobilinogen Negative (Negative); Urine White Blood Cell Trace(0-5/hpf) (Absent)
[2019-06-24 10:15] LABS: Albumin 4.9 g/dL (3.2-5.2); Albumin/Globulin Ratio 1.4 (1-3); BUN/Creatinine Ratio 15.3 (8-20); C Reactive Protein 3.18 mg/L (<8.01); EGFR African American 94.3 (>60); EGFR Non-African American 77.9 (>60); Globulin 3.4 g/dL (2-4); Potassium 3.8 mmol/L (3.5-5.0); Total Bilirubin 1.1 mg/dL (0.2-1.0); Total Protein 8.3 g/dL (6.4-8.9)
[2019-06-24 11:35] VITALS: BP 145/70
== END 2019-06-25 02:45 | disposition home or self-care (01) ==
LOC: ED 09:11
DX: R10.9 Unspecified abdominal pain (principal); I10 Essential (primary) hypertension; K21.9 Gastro-esophageal reflux disease without esophagitis
CPT/HCPCS: 36415; 80053; 81003; 83690; 85025; 86140; 87086; 96361; 96374; 99282; J1885

== ENCOUNTER 2019-06-25 00:56 | Emergency (ER) | payer OTHER ==
[2019-06-25] MEDS ORDERED: LORazepam TAB(*) 1 MG PO ONE (01:10)
--- NOTE | 2019-06-25 01:11 | ED ---
Psychiatric Complaint - HPI Summary HPI Summary: 19 year old male presents with increasing anxiety for the past 5 days. He states that he has been feeling off. He states he has been having palpitations. he denies any chest pressures or shortness of breath. He states that he feels queasy. Denies any bowel pain. No nausea or vomiting. States he did have pain earlier and was evaluated here and had a negative workup. The pain has resolved and just feels unwell. He is also been having suicidal thoughts. He denies any specific plan. He is not homicidal. He denies alcohol 6 days ago. He has not used any drug or alcohol use in the past 5 days. - History Of Current Complaint Chief Complaint: EDSuicidal Time Seen by Provider: 06/25/19 01:04 - Allergies/Home Medications Allergies/Adverse Reactions: Allergies Allergy/AdvReac Type Severity Reaction Status Date / Time No Known Allergies Allergy Verified 06/25/19 01:07 Home Medications: Home Medications Valsartan TAB* [Diovan TAB*] 160 mg PO DAILY 04/18/18 [History Confirmed ] amLODIPine TAB* [Norvasc 5 mg TAB*] 7.5 mg PO DAILY 04/18/18 [History Confirmed 06/25/19] LORazepam TAB(*) [Ativan 0.5 MG TAB (*)] 0.5 mg PO Q12H PRN #4 tab MDD 2 [Rx] [place] Carbonate 300 mg cap 300 mg PO DAILY 06/25/19 [History Confirmed ] Xanax TAB* 0.5 mg PO DAILY PRN 06/25/19 [History Confirmed 06/25/19] busPIRone TAB* 10 mg PO BID 06/25/19 [History Confirmed 06/25/19] PMH/Surg Hx/FS Hx/Imm Hx Endocrine/Hematology History: Denies: Hx Diabetes Cardiovascular History: Reports: Hx Hypertension GI History: Reports: Hx Gastroesophageal Reflux Disease Sensory History: Reports: Hx Contacts or Glasses Denies: Hx Legally Blind, Hx Deafness, Hx Hearing Aid Opthamlomology History: Reports: Hx Contacts or Glasses Denies: Hx Legally Blind - Immunization History Date of Tetanus Vaccine: UTD Infectious Disease History: No Infectious Disease History: Denies: Traveled Outside the [place] in Last 30 Days - Family History Known Family History: Positive: Hypertension - Social History Alcohol Use: Rare Alcohol Amount: denies Hx Substance Use: No Substance Use Type: Reports: None Substance Use Comment - Amount & Last Used: Adderall occassionally Hx Tobacco Use: No Smoking Status (MU): Never Smoked Tobacco Review of Systems Negative: Fever Positive: Palpitations. Negative: Chest Pain Negative: Shortness Of Breath Positive: Anxious, Depressed All Other Systems Reviewed And Are Negative: Yes Physical Exam Triage Information Reviewed: Yes Vital Signs On Initial Exam: Initial Vitals Temp Pulse Resp BP Pulse Ox 99.5 F 93 20 170/110 99 06/25/19 00:57 06/25/19 00:57 06/25/19 00:57 06/25/19 00:57 06/25/19 00:57 Vital Signs Reviewed: Yes Appearance: Positive: Well-Appearing Skin: Positive: Warm, Dry Head/Face: Positive: Normal Head/Face Inspection Eyes: Positive: Normal, Conjunctiva Clear Respiratory/Lung Sounds: Positive: Clear to Auscultation, Breath Sounds Present Cardiovascular: Positive: Normal, RRR Abdomen Description: Positive: Nontender, Soft Bowel Sounds: Positive: Present Musculoskeletal: Positive: Normal Neurological: Positive: Normal Psychiatric: Positive: Anxious Procedures - Sedation Patient Received Moderate/Deep Sedation with Procedure: No Diagnostics - Vital Signs Vital Signs Temp Pulse Resp BP Pulse Ox 06/25/19 00:57 99.5 F 93 20 170/110 99 - Laboratory Lab Statement: Any lab studies that have been ordered have been reviewed, and results considered in the medical decision making process. - EKG No standard instances Cardiac Rate: NL EKG Rhythm: Sinus Rhythm Summary of EKG Findings: sinus rhythm Re-Evaluation - Re-Evaluation First Eval Re-Evaluation Time: 02:30 Change: Improved Comment: symptoms resolved, feeling better Course/Dx - Course Course Of Treatment: 19 year old male presents with increasing anxiety for the past 5 days. He states that he has been feeling off. He states he has been having palpitations. he denies any chest pressures or shortness of breath. He states that he feels queasy. Denies any bowel pain. No nausea or vomiting. States he did have pain earlier and was evaluated here and had a negative workup. The pain has resolved and just feels unwell. He is also been having suicidal thoughts. He denies any specific plan. He is not homicidal. He denies alcohol 6 days ago. He has not used any drug or alcohol use in the past 5 days. on exam appears anxious. ekg sinus rhythm. lab work yesterday wnl. gave ativan. patient is medically clear for mental health. per dr oswald can be discharge with script for ativan. gave script. patient has follow up later this week for medication refill. - Differential Dx/Clinical Impression Differential Diagnosis/HQI/PQRI: Positive: Anxiety, Depression, Suicidal Ideation Provider Diagnosis: Anxiety - Critical Care Time Critical Care Statement: Critical care time is provided exclusive of any time spent performing procedures. Discharge ED - Sign-Out/Discharge Documenting (check all that apply): Patient Departure - Discharge Plan Condition: Stable Disposition: HOME Prescriptions: LORazepam TAB(*) [Ativan 0.5 MG TAB (*)] 0.5 mg PO Q12H PRN #4 tab MDD 2 PRN Reason: Anxiety Referrals: Socorro López DO [Primary Care Provider] - - Billing Disposition and Condition Condition: STABLE Disposition: Home
[2019-06-25 02:22] LABS: Urine Appearance Clear; Urine Bilirubin Negative (Negative); Urine Blood Negative (Negative); Urine Color Yellow; Urine Glucose Negative (Negative); Urine Ketones Trace (Negative); Urine Nitrite Negative (Negative); Urine Protein Negative (Negative); Urine Specific Gravity 1.011 (1.010-1.030); Urine Urobilinogen Negative (Negative)
[2019-06-25 02:38] LABS: Urine Benzodiazepine Screen None Detected (None Detect); Urine Opiates Screen None Detected (None Detect)
[2019-06-25 02:53] VITALS: BP 152/114
== END 2019-06-25 02:45 | disposition home or self-care (01) ==
LOC: ED 00:56
DX: F41.9 Anxiety disorder, unspecified (principal); R00.2 Palpitations; K21.9 Gastro-esophageal reflux disease without esophagitis; F32.9 Major depressive disorder, single episode, unspecified; I10 Essential (primary) hypertension; Z79.899 Other long term (current) drug therapy
CPT/HCPCS: 80307; 81003; 93005; 99285; A9270-GY; G0480